=== PATIENT | female | born 1950 | race Caucasian/White ===

== ENCOUNTER 2016-07-07 10:32 | Day surgery (SDC) | payer OTHER ==
--- NOTE | 2016-06-23 17:13 | HP ---
DATE OF ADMISSION: 06/23/2016 CURRENT COMPLAINTS: Leukocytosis without identifiable cause. This is history and physical for bone marrow biopsy. HISTORY OF PRESENT ILLNESS: The patient is a 66-year-old white female without significant past [facility] history who was sent [place]ology/oncology evaluation. She has several hematological ab normalities. She was noted to have anemia in 08/2014. Her anemia was corrected with folic acid, bu t patient has persistent leukocytosis and intermittent thrombocytopenia. WBC remains elevated from 12,000 to 15,000. Patient was seen on 06/17/2016. All previous infectious and hematologic workup h as been negative. Bone marrow biopsy was advised as a part of workup to rule out primary bone marrow disorder. PAST MEDICAL HISTORY: As above. Anemia, corrected. Leukocytosis and thrombocytopenia, last one in termittent. PRIMARY MD: Dr. Olayinka Clarke, phone number [phone] MEDICATIONS: 1. Folic acid. 2. Aspirin. ALLERGIES: NONE KNOWN. FAMILY HISTORY: Hypertension, hypercholesterolemia. SOCIAL HISTORY: Patient smoked for 20 years, 1 pack per day. Now decreased to several cigarettes. Alcohol: None. Drugs: None. She has 2 children. She is a retired [employer]EC[employer]IVE from [employer]. She is originally from [place]. PHYSICAL EXAMINATION: GENERAL: Reveals a developed middle-aged female in no acute distress at the time of examinati on. VITAL SIGNS: Stable, afebrile. Temperature 97.2, pulse 70, respirations 16, blood pressure 124/76. SKIN: Warm and dry without visible lesions. HEENT: Benign. Sclerae anicteric. Conjunctivae pale. Mouth without thrush or ulcers. No patholo gical lymphadenopathy noted. LUNGS: Clear. CARDIOVASCULAR: Regular. ABDOMEN: Soft, nontender, nondistended, without hepatosplenomegaly or ascites. EXTREMITIES: Without clubbing, cyanosis, edema or calf tenderness. RECTAL: Deferred. NEUROLOGIC: Grossly nonfocal. LABORATORY WORK: WBC 14.5, H and H 15.8/45.2, MCV 94, RDW 12.1, platelet count 114. Abdominal ultr asound is negative. Chest x-ray and UA did not reveal any evidence of infection. DIAGNOSES AND PLAN: A 64-year-old female with peristent leukocytosis, intermittent thrombocytopenia , and corrected anemia. PLAN: Proceed with bone marrow biopsy to rule out primary bone marrow disorder. Dictated By: GRABIEL SOW/ARCENIO Conf#: [id number] DID#: [id number]
[2016-07-07] VITALS (11 sets, daily range): BP systolic 96–114; BP diastolic 51–68; PULSE 66–82; RESP 14–25; Ht 154.9 cm; Wt 59.8 kg
[~2016-07-07] VITALS: Ht 154.9 cm; Wt 59.8 kg
[2016-07-07] MEDS ORDERED: EZET10TA3 PO (11:03)
[2016-07-07] MEDS ORDERED: ASPI-664 PO (11:04)
[2016-07-07] MEDS ORDERED: LIDOCAINE 1% (MDV) 20 ML INJ ONE (13:06)
[2016-07-07] MEDS ORDERED: DIPHENHYDRAMINE 50 MG INJ ONE (13:07)
[2016-07-07] MEDS ORDERED: FENTAnyl 50 MCG/ML VIAL ONE (13:07)
[2016-07-07] MEDS ORDERED: MIDAZOLAM 1 MG/ML 2 ML INJ ONE (13:07)
[2016-07-07 14:31] LABS: BASOPHIL # 0.1 10^3/ul (0.0-0.1); BASOPHILS % 0.9 % (0.0-2.0); EOSINOPHILS # 0.4 10^3/ul (0.0-0.5); EOSINOPHILS % 3.5 % (0.0-7.0); HEMATOCRIT 41.9 % (37.0-47.0); HEMOGLOBIN 14.4 g/dl (12.0-16.0); LYMPHOCYTES # 4.2 10^3/ul (0.8-2.9); MEAN CORPUSCULAR HEMOGLOBIN 32.3 pg (29.0-33.0); MEAN CORPUSCULAR HGB CONC 34.3 g/dl (32.0-37.0); MEAN CORPUSCULAR VOLUME 94.1 fl (82.0-101.0); MEAN PLATELET VOLUME 7.8 fl (7.4-10.4); MONOCYTE # 0.6 10^3/ul (0.3-0.9); MONOCYTES % 5.5 % (0.0-11.0); NEUTROPHILS % 53.1 % (39.0-77.0); PLATELET COUNT 428 10^3/UL (140-440); RED BLOOD COUNT 4.46 10^6/ul (4.20-5.40); RED CELL DISTRIBUTION WIDTH 13.8 % (11.5-14.5); UNCORRECTED WBC 11.2 10^3/ul (4.8-10.8); WHITE BLOOD COUNT 11.2 10^3/ul (4.8-10.8)
[2016-07-07 14:35] LABS: CONDITION 1
--- NOTE | 2016-07-07 15:08 | RADRPT ---
PROCEDURE: CT guided bone marrow aspiration and left iliac bone biopsy. CLINICAL INDICATION: History of leukocytosis. TECHNIQUE: Informed consent was obtained. The procedure, risks, benefits, complications and alternatives were e xplained to the patient. Risks including bleeding and infection were explained. The patient understo od and was willing to proceed. A procedural pause was performed. The patient's name, date of , and procedure to be performed were verified. One or more of the following dose reduction techni ques were used: Automated exposure control, adjustment of the mA and/or kV according to patient size , use of iterative reconstruction technique. Using local anesthetic, sterile technique and CT guidance, an 11-gauge On Control bone biopsy needle was advanced into the left iliac bone via a posterior approach. Bone marrow aspiration was perform ed yielding approximately 10 ml. The bone biopsy needle was then advanced an additional 4 cm using the power drill device and tissue was obtained. Adequate tissue was obtained according to the patho logist present during the procedure. The needle was removed. A postprocedural scan was performed. A dressing was applied. The patient tolerated procedure well. COMPARISON: None. FINDINGS: Initial images demonstrate the tip of the needle at the posterior margin of the left iliac bone. Valdez bsequent images demonstrate the needle within the bone. Post biopsy images demonstrate no immediate complication. IMPRESSION: 1. Successful CT guided bone marrow aspiration and biopsy. RPTAT: QQ .Jonatan Cobb MD, Date Time Electronically viewed and signed by .Jonatan Cobb MD, on 07/07/2016 15:08 .R/
== END 2016-07-07 16:10 | disposition home or self-care (01) ==
LOC: SDS 10:32
PROVIDERS: ATTEND Internal Medicine Hematology & Oncology
DX: D72.829 Elevated white blood cell count, unspecified (principal); D69.6 Thrombocytopenia, unspecified
CPT/HCPCS: 38221; 77012; 85025; 88305; 88313; J1200; J2250; J3010; Z7610